=== PATIENT | male | born 1995 | race African-American/Black ===

== ENCOUNTER 2017-11-27 04:40 | Emergency (ER) | payer OTHER ==
[~2017-11-27] VITALS: Ht 172.7 cm; Wt 63.0 kg
[2017-11-27 08:19] LABS: CLARITY URINE CLEAR (CLEAR); COLOR URINE YELLOW (YELLOW); KETONES URINE NEGATIVE (NEGATIVE); LEUKOCYTE ESTERASE URINE TRACE (NEGATIVE); NITRITE URINE NEGATIVE (NEGATIVE); OCCULT BLOOD URINE NEGATIVE (NEGATIVE); PH URINE 5.5 (4.5-8.0); PROTEIN URINE NEGATIVE (NEGATIVE); SPECIFIC GRAVITY URINE 1.035 (1.005-1.030)
[2017-11-27 10:19] VITALS: BP 108/53
== END 2017-11-27 10:23 | disposition home or self-care (01) ==
LOC: ER 07:19
DX: N48.1 Balanitis (principal); N34.2 Other urethritis; K59.00 Constipation, unspecified
CPT/HCPCS: 81003; 99283

== ENCOUNTER 2018-01-04 12:24 | Emergency (ER) | payer OTHER ==
[~2018-01-04] VITALS: Ht 167.6 cm; Wt 65.0 kg
[2018-01-04] MEDS ORDERED: ACETAMINOPHEN 325MG TABLET PO STA (15:28)
[2018-01-04] MEDS ORDERED: IBUPROFEN 600MG TABLET PO STA (15:28)
[2018-01-04 16:25] LABS: CLARITY URINE CLEAR (CLEAR); COLOR URINE YELLOW (YELLOW); KETONES URINE TRACE (NEGATIVE); LEUKOCYTE ESTERASE URINE 1+ (NEGATIVE); NITRITE URINE NEGATIVE (NEGATIVE); OCCULT BLOOD URINE TRACE (NEGATIVE); PH URINE 5.5 (4.5-8.0); PROTEIN URINE NEGATIVE (NEGATIVE); SPECIFIC GRAVITY URINE 1.026 (1.005-1.030)
[2018-01-04 16:51] LABS: BASOPHILS % 0.1 % (0.0-2.0); EOSINOPHILS % 0.2 % (0.0-5.0); HEMATOCRIT. 42.6 % (42.0-52.0); HEMOGLOBIN. 14.7 g/dL (14.0-18.0); MEAN CORPUSCULAR HEMOGLOBIN 30.6 pg (28.0-32.0); MEAN CORPUSCULAR VOLUME 88.7 fL (80.0-94.0); MEAN PLATELET VOLUME 8.5 fl (7.4-10.4); MONOCYTES % 12.7 % (2.0-8.0); PLATELET 211 x1000/uL (130-400); RED CELL DISTRIBUTION WIDTH 12.6 % (11.6-14.6)
[2018-01-04 16:56] LABS: CHLORIDE 104 mEq/L (98-107)
[2018-01-04 17:55] VITALS: BP 122/68
== END 2018-01-04 18:01 | disposition home or self-care (01) ==
LOC: ER 15:21
DX: N48.1 Balanitis (principal); R51 Headache
CPT/HCPCS: 36415; 80053; 81003; 85025; 99284; Z7610

== ENCOUNTER 2018-02-02 16:03 | Emergency (ER) | payer OTHER ==
[~2018-02-02] VITALS: Ht 172.7 cm; Wt 59.0 kg
[2018-02-02 18:37] VITALS: BP 103/50
[2018-02-02] MEDS ORDERED: DIPHENHYDRAMINE 25MG CAPSULE PO ONE (22:45)
[2018-02-03 00:20] LABS: CLARITY URINE CLEAR (CLEAR); COLOR URINE YELLOW (YELLOW); KETONES URINE 3+ (NEGATIVE); LEUKOCYTE ESTERASE URINE NEGATIVE (NEGATIVE); NITRITE URINE NEGATIVE (NEGATIVE); OCCULT BLOOD URINE TRACE (NEGATIVE); PH URINE 5.5 (4.5-8.0); PROTEIN URINE NEGATIVE (NEGATIVE)
== END 2018-02-03 01:11 | disposition home or self-care (01) ==
LOC: ER 16:03
DX: N48.1 Balanitis (principal)
CPT/HCPCS: 81003; 99283; Q0163

== ENCOUNTER 2018-04-22 15:58 | Emergency (ER) | payer OTHER ==
[~2018-04-22] VITALS: Ht 170.2 cm; Wt 55.0 kg
[2018-04-22 18:21] VITALS: BP 96/37
[2018-04-22] MEDS ORDERED: IBUPROFEN 800MG TABLET PO ONE (18:30)
== END 2018-04-22 18:43 | disposition home or self-care (01) ==
LOC: ER 15:58
DX: R05 Cough (principal); K13.79 Other lesions of oral mucosa; B35.9 Dermatophytosis, unspecified; N48.89 Other specified disorders of penis; Z98.818 Other dental procedure status
CPT/HCPCS: 99282

== ENCOUNTER 2018-07-10 18:02 | Emergency (ER) | payer OTHER ==
[~2018-07-10] VITALS: Ht 170.2 cm; Wt 59.0 kg
[2018-07-11 00:55] VITALS: BP 110/66
== END 2018-07-11 01:29 | disposition home or self-care (01) ==
LOC: ER 18:56
DX: Z48.00 Encounter for change or removal of nonsurgical wound dressing (principal); Z98.890 Other specified postprocedural states
CPT/HCPCS: 99283

== ENCOUNTER 2019-04-09 23:46 | Emergency (ER) | payer OTHER ==
[~2019-04-09] VITALS: Ht 170.2 cm; Wt 63.0 kg
[2019-04-10] MEDS ORDERED: ALBUTEROL (0.083%) 2.5MG/3ML NEB HHN ONE (03:30)
[2019-04-10] MEDS ORDERED: IBUPROFEN 600MG TABLET PO ONE (03:30)
[2019-04-10 04:30] VITALS: BP 131/76
== END 2019-04-10 06:58 | disposition home or self-care (01) ==
LOC: ER 23:46
DX: J06.9 Acute upper respiratory infection, unspecified (principal)
CPT/HCPCS: 87804; 94640; 99283; J7611; Z7610

== ENCOUNTER 2019-07-18 10:29 | Emergency (ER) | payer OTHER ==
[~2019-07-18] VITALS: Ht 170.2 cm; Wt 67.0 kg
[2019-07-18 10:36] VITALS: BP 103/66
[2019-07-18] MEDS ORDERED: DIPHENHYDRAMINE 25MG CAPSULE PO ONE (12:15)
== END 2019-07-18 12:14 | disposition home or self-care (01) ==
LOC: ER 10:29
DX: L30.9 Dermatitis, unspecified (principal); R19.7 Diarrhea, unspecified
CPT/HCPCS: 99282

== ENCOUNTER 2019-08-05 02:49 | Emergency (ER) | payer MEDICAID, OTHER ==
[~2019-08-05] VITALS: Ht 170.2 cm; Wt 71.0 kg
[2019-08-05 03:00] VITALS: BP 133/79
== END 2019-08-05 03:53 | disposition home or self-care (01) ==
LOC: ER 03:45
DX: B34.9 Viral infection, unspecified (principal)
CPT/HCPCS: 99281

== ENCOUNTER 2022-02-12 01:27 | Emergency (ER) | payer MEDICAID ==
[~2022-02-12] VITALS: Ht 167.6 cm; Wt 77.0 kg
[2022-02-12 01:37] VITALS: BP 109/57
== END 2022-02-12 06:21 | disposition left against medical advice (07) ==
LOC: ER 01:27
DX: Z53.21 Procedure and treatment not carried out due to patient leaving prior to being seen by health care provider (principal)